=== PATIENT | female | born 1965 | race Two or more races ===

== ENCOUNTER 2020-12-27 18:10 | Emergency (ER) | payer MEDICAID ==
[~2020-12-27] VITALS: Ht 160 cm; Wt 70.3 kg
--- NOTE | 2020-12-27 18:10 | NUR ---
Patient brought in by [id number] for a "panic attack", patient noted resting with eyes closed on gurney.
[2020-12-27 18:49] LABS: BASOPHILS % (AUTO) 0.7 % (0.0-2.0); EOSINOPHILS # (AUTO) 0.1 K/uL (0.0-0.7); EOSINOPHILS % (AUTO) 1.5 % (0.0-7.0); HEMATOCRIT 43.4 % (31.2-41.9); HEMOGLOBIN 14.7 g/dL (10.9-14.3); LYMPHOCYTES # (AUTO) 2.5 K/uL (20.0-40.0); LYMPHOCYTES % (AUTO) 48.8 % (20.5-51.5); MEAN CORPUSCULAR HEMOGLOBIN 30.9 uug (24.7-32.8); MEAN CORPUSCULAR HGB CONC 34 g/dL (32.3-35.6); MEAN CORPUSCULAR VOLUME 91.1 fL (75.5-95.3); MONOCYTES # (AUTO) 0.3 K/uL (2.0-10.0); MONOCYTES % (AUTO) 5.6 % (0.0-11.0); NEUTROPHILS # (AUTO) 2.2 K/uL (1.8-8.9); NEUTROPHILS % (AUTO) 43.4 % (38.5-71.5); PLATELET COUNT (AUTO) 211 K/uL (179-408); RED BLOOD CELL COUNT(AUTO) 4.77 MIL/uL (3.63-4.92); WHITE BLOOD COUNT (AUTO) 5.1 K/uL (3.8-11.8)
--- NOTE | 2020-12-27 19:00 | NUR ---
Received patient at this time
[2020-12-27] MEDS: IV NORMAL SALINE 1000 ML BAG IV ONE (19:07)
[2020-12-27 19:11] LABS: BILIRUBIN,DIRECT 0.1 mg/dL (0.0-0.2); BILIRUBIN,TOTAL 0.4 mg/dL (0.2-1.0); CREATININE 0.7 mg/dL (0.6-1.3); POTASSIUM 3.3 mmol/L (3.5-5.1); TOTAL PROTEIN, SERUM 7.8 g/dL (6.4-8.2)
[2020-12-27] MEDS: METOCLOPRAMIDE HCL 10 MG/2 ML VIAL IV ONE (19:11)
[2020-12-27] MEDS ORDERED: METOCLOPRAMIDE HCL 10 MG/2 ML VIAL ONE (19:14)
[2020-12-27] MEDS: LORAZEPAM 0.5 MG TABLET PO ONE (19:52)
[2020-12-27] MEDS ORDERED: LORAZEPAM 1 MG TABLET ONE (19:56)
--- NOTE | 2020-12-27 20:00 | NUR ---
Patient presents to ED for anxiety/panic attack as well as head pain that radiates down left arm. According to son she has had similiar episodes. Patient is pashto speaking so it is difficult to get a full history. A&Ox4. Serbian speaker. Very pleasant. Visibly anxious - attempts made to calm were successful. Ativan given with good effect. Saturations >94% on Room Air. No SOB. No labored breathing. NSR on monitor. No CP, no Diaphoresis, no chills. GI/: No issues reported. Continent.
--- NOTE | 2020-12-27 21:00 | NUR ---
Patient resting in bed. No distress. VSS.
[2020-12-27 21:39] VITALS: BP 117/70
--- NOTE | 2020-12-27 22:08 | NUR ---
Patient discharged to home in stable condition. Written and verbal after care instructions given. Patient verbalizes understanding of instructions. Stressed follow up or return to ER for worsening s/s. Instructed to not drive - son states he will be driving patient home. VSS. Steady gait. All belongings with patient.
== END 2020-12-27 22:09 | disposition home or self-care (01) ==
LOC: ER 18:12
DX: F41.0 Panic disorder [episodic paroxysmal anxiety] (principal); R55 Syncope and collapse; R07.89 Other chest pain; R93.0 Abnormal findings on diagnostic imaging of skull and head, not elsewhere classified; R51.9 Headache, unspecified; I10 Essential (primary) hypertension
CPT/HCPCS: 36415; 70450; 71045; 80048; 80076; 83880; 84484 ×2; 84702; 85025; 93005; 96361; 96374; 99285; J2765; 70030-TC; A4663; J7030